=== PATIENT | male | born 1945 | race Caucasian/White ===

== ENCOUNTER 2025-05-09 09:50 | Emergency (ER) | payer OTHER, SELFPAY ==
[2025-05-09 09:53] VITALS: BP 162/82
[2025-05-09] MEDS: TORADOL 15 MG IV (12:34)
[2025-05-09] MEDS: REGLAN 10 MG IV (12:37)
[2025-05-09] MEDS: MAGNESIUM SULFATE 50 IV (12:40)
[2025-05-09 12:43] VITALS: BP 115/77
[2025-05-09 13:00] VITALS: BP 121/76
--- NOTE | 2025-05-09 13:31 | ED.GENMED ---
History of Present Illness
General
Chief Complaint: Headache
Time Seen by Provider: 05/09/25 10:34
History of Present Illness
History of Present Illness:
80-year-old male with history of seizure disorder and hypertension presents to the emergency department for evaluation of intractable headache for the past 6 days. Headache seems to wax and wane with provoking or palliating causes, he does note
that occasionally on abrupt standing the symptoms worsen. Denies any nausea, vomiting, diarrhea, recent fevers or chills, photophobia or diplopia.
Review of Systems
Review of Systems
Allergies reviewed?: Yes
All Other Systems: ROS reviewed and negative except as documented in HPI and ROS
Phy Exam
Physical Exam
Physical Exam:
GEN: Well appearing, NAD, WDWN
HEENT: Oral mucosa moist, no scleral icterus, no nasal congestion
Cardiac: Regular rate
Lung: No respiratory distress, no tachypnea
MSK: No gross deformity or injuries
Skin: Good color, no pallor or jaundice, no rashes
Neuro: AO x3; CN II-XII grossly intact. BUE strength 5/5 in all mark, sensation intact and symmetric. BLE strength 5/5 in all mark, sensation intact and symmetric
Psych: Calm, cooperative
Course
Orders/Labs/Results
Orders:
Orders
05/09/25 10:53
CT Head W/o Iv Contrast Urgent
Comment:
Reason For Exam: headache
05/09/25 12:08
Ketorolac [Toradol] 15 mg IV NOW STA
Magnesium Sulfate 2 Gram/50 ml [Magnesium Sulfate] 2 gram in 50 ml IV NOW
Metoclopramide [Reglan] 10 mg IV NOW STA
05/09/25 13:54
diazePAM [Valium Injection] 1 mg IV NOW STA
Vital Signs
Initial and Last Documented VS:
Initial Vital Signs
Temp
97.8 F
05/09/25 09:52
Last Documented Vital Signs
Temp Pulse Resp BP Pulse Ox
97.8 F 84 18 135/73 97
05/09/25 09:52 05/09/25 09:53 05/09/25 09:53 05/09/25 14:00 05/09/25 14:00
MDM/Problems Addressed
MDM/Problems Addressed:
Patient has unremarkable neurologic exam however given new daily persistent headache a CT was obtained to rule out hemorrhage or neoplasm and this was reassuring. Patient was given migraine cocktail meds in the emergency department with improvement
of symptoms. Will prescribe NSAIDs for supportive relief at home, primary care follow-up for ongoing symptoms
*Pulse Oximetry
SaO2: 97
Oxygen Mode of Delivery: Room air
Patient hypoxic: no
*Critical Care Note
Total Time (30-74mins, 75-104mins- exclusive of procedures): Not Applicable
ED Attending Note
-
Portions of this chart may have been created with voice recognition software.� Occasional wrong word or��sound alike� substitutions may have occurred due to the inherent limitations of voice recognition software.
Discharge Plan
Departure
Patient Disposition: Home (Routine Discharge)
Date of Disposition: 05/09/25
Time of Disposition: 13:31
Patient with high blood pressure during this ER visit?: No
Discharge Problem:
Acute intractable headache
Instructions: Headache, Adult (DC)
Prescriptions:
New
diclofenac sodium 75 mg tablet,delayed release (DR/EC)
75 mg PO BID PRN (Reason: headache) Qty: 20 0RF
No Action
Theragen Tablet
1 tab PO DAILY
dexamethasone 0.5 mg/5 mL solution
0.5 mg PO DAILY
Rx Instructions:
swish and spit
propranolol 10 mg tablet
10 mg PO DAILY
pantoprazole 40 mg tablet,delayed release (DR/EC)
40 mg PO DAILY
losartan 25 mg tablet
25 mg PO DAILY
ibuprofen 200 mg Tablet
600 mg PO DAILYPRN PRN (Reason: mild pain)
triamterene-hydrochlorothiazid 37.5-25 mg tablet
1 tab PO DAILY
aspirin 81 mg Tablet
81 mg PO DAILY
metformin 500 mg tablet extended release 24 hr
500 mg PO DAILY
metformin 500 mg tablet extended release 24 hr
1,000 mg PO HS
lamotrigine 100 mg tablet
100 mg PO Q12H
rosuvastatin 10 mg tablet
10 mg PO DAILY
Briviact 50 mg tablet
50 mg PO BID
Referrals:
UNKNOWN - PT DOES,NOT KNOW [Family Provider]
Interventions
Interventions:
*Risk Screen - Suicide Last Done: 05/09/25 12:07
*General Assessment Last Done: 05/09/25 12:07
*Neglect/Abuse Screening Last Done: 05/09/25 12:07
ED- Neurological Assessment Last Done: 05/09/25 12:07
Discharge Date and Time
Print Language: CENTRAL AFRICAN
[2025-05-09] MEDS: VALIUM INJECTION 1 MG IV (13:58)
[2025-05-09 14:00] VITALS: BP 135/73
== END 2025-05-09 15:14 | disposition home or self-care (01) ==
LOC: EMR 09:50
PROVIDERS: EMERGENCY PHYSICIAN Emergency Medicine
DX: R51.9 Headache, unspecified (principal); I10 Essential (primary) hypertension; G40.909 Epilepsy, unspecified, not intractable, without status epilepticus; Z79.82 Long term (current) use of aspirin
CPT/HCPCS: 99284; 96365; 96374; 96375 ×2; 70450